=== PATIENT | female | born 1950 | race African-American/Black ===

== ENCOUNTER 2024-10-26 15:51 | Emergency (ER) | payer MEDICARE, SELFPAY ==
--- NOTE | 2024-10-26 16:00 | PD.EDCPR ---
ED CPR RME/HPI General Stated Complaint: CARDIAC ARREST Time Seen by Provider: 10/26/24 16:04 Arrival date/time: 10/26/24 15:51 RME / HPI RME / HPI narrative: DR. MARINELLI MAIN ED EVALUATION: 73 year old female with a history of hypertension and hysterectomy at 27 years old presents to the Emergency Department DENIS as a code blue, patient has been down since about 35 minutes prior to arrival so about 1515 hours. Upon ED arrival: patient had no signs of life, patient was pulseless, patient was immediately transferred to a [facility], and CPR was continued. No history or ROS obtainable by patient due to unresponsiveness. Patient was intubated prior to arrival by EMS at 1525 hours. EMS did not shock her but multiple rounds of EPI given. EMS denied any trauma. Patient was in asystole the entire code. Related Data Previous Rx's ?Medication ?Instructions ?Recorded amiodarone 200 mg tablet 200 mg PO QDAY #30 tabs 06/12/20 aspirin 81 mg tablet,delayed 81 mg PO QDAY #30 tabs 06/12/20 release diltiazem HCl 120 mg 120 mg PO QAM #30 caps 06/12/20 capsule,extended release 24 hr magnesium oxide 400 mg (241.3 mg 400 mg PO BID #14 tabs 06/12/20 magnesium) tablet potassium chloride 20 mEq 40 meq (2 x 20 mEq) PO BIDWM #14 06/12/20 tablet,extended release(part/cryst) tabs Allergies Allergy/AdvReac Type Severity Reaction Status Date / Time apple Allergy Severe HIVES, Verified 06/09/20 11:00 THROAT SWELLING Review of Systems Review of Systems ROS Unobtainable: unobtainable due to mental status and unobtainable due to medical condition Past Medical History Past Medical History CARDIAC: Positive Cardiac Disorders and Hypertension Surgical History SURGICAL: Positive Hysterectomy (pt was 27 years old) Social History SMOKING STATUS: Never smoker SUBSTANCE USE: does not use ALCOHOL: Never ED Exam Narrative Physical exam: GENERAL APPEARANCE: No sign of life. VITALS: No sign of life. HEENT: No sign of life. Pupils are fixed and dilated. NECK: No sign of life. CARDIOVASCULAR: No sign of life. No pulse present. LUNGS/CHEST: No sign of life. No spontaneous breathing. ABDOMEN: No sign of life. Belly distended and tight. EXTREMITIES: No sign of life. Pale, pulseless, no spontaneous movement. SKIN: No sign of life. MUSCULOSKELETAL: No sign of life. NEURO: No sign of life. Unable to examine. PSYCHIATRIC: No sign of life. Unable to examine. Course Course Course Narrative: 1550: Patient arrived as a code blue and was immediately seen by me. CPR continued. Downtime was 1515 hours and intubated prior to arrival by EMS at 1525 hours. 1558: Pulse check: No pulse, asystole. Time of Quality Measures none Cardiac Arrest / CPR MDM Narrative MDM Narrative:: I, Ann-Marie Paige, am scribing for and in the presence of Dr. Marinelli. the patient was brought into the emergency department by human resources compensation analyst for CODE BLUE. According to human resources compensation analyst the patient had been asystole and had been CPR by human resources compensation analyst for at least 30 minutes prior to arrival. The patient was intubated by human resources compensation analyst at 1535 in the field. The patient had been given epinephrine in the field. No shockable rhythm reported by human resources compensation analyst. Upon arrival to the emergency department the patient was showing no sign of life. No spontaneous movement. Pupils were fixed and dilated. No eyes movement. And the patient upon arrival at 1550, had a lot of what appeared to be stomach content in the ET tube. I listened to both lungs there was no lung sound. But there was stomach air bubble. We immediately removed the tube. And Ambu bag by hand by RT. The patient remained asystole. With no sign of life. Pupils are fixed and dilated. The patient was pronounced at 1558. Patient data External records reviewed:: [facility] previous records (Reviewed last admission discharge dated 06/12/20, patient admitted for the following: Acute gastroenteritis.) and EMS form Clinical information provided by:: EMS Social determinants that could affect healthcare access:: none Patient has the following chronic illnesses:: Hypertension and hysterectomy at 27 years old. How is presenting disease/condition affected by chronic disease/condition?: exacerbated by Evaluation data The following diagnostics were reviewed and interpreted by me:: other (specify) (none) Lab and/or radiology exams considered but not ordered:: none Interpretation Summary: See above under MDM narrative. Medications / Prescriptions Medications or Prescriptions considered but not ordered:: none Medication administrations:: see above if any Consultations Consultation(s) initiated? (list below): No Diagnosis Most likely diagnosis given after review of the tests above:: Cardiac arrest Admission Indicated Admission indicated?: not indicated Explain why admission is indicated or not indicated:: Patient Admission Request Was there a request for admission?: No Disposition Plan Disposition Plan: other (specify) (Patient ) Discharge Plan Plan Patient Disposition: Disposition Comment: Patient Problem List Clinical Impression: Cardiac arrest Patient/Caregiver Discharge Instructions Print Language: Croatian
--- NOTE | 2024-10-26 16:16 | PC.NURSE ---
PATIENT ARRIVED VIA EMS SECONDARY TO UNRESPONSIVE. PATIENT ARRIVED INTUBATED, IV IO AND MEDICATION GIVEN. CPR IN PROGRESS AND CONTINUED AT TIME OF ARRIVAL TO ED. TEAM IN ROOM 3 AND TOOK OVER CARE OF PATIENT. BILL RODRIGUEZ CALLED AND EFFORTS CONTINUED. PLEASE SEE CODE SHEET FOR RESCUE EFFORTS. BILL RODRIGUEZ CALLED AT [address] YANG.
--- NOTE | 2024-10-26 16:24 | PC.NURSE ---
[employer] CONTACTED AND SPOKE WITH CHRIS. REFERENCE #[id number]. STATES WILL CALL BACK WITH ADDITIONAL REQUEST FOR PRIMARY CONTACT INFORMATION.
--- NOTE | 2024-10-26 17:35 | PC.CC ---
ED Auto Glass Installer assisted medical staff in briefing family regarding pt passing. Admission Liaison agreed to communicate with hospital Brennan in order to allow family time and voodoo request. Family requested to have [employer].
--- NOTE | 2024-10-26 17:37 | PC.CC ---
ED Head And Neck Surgeon notified Gera Durbin arrived to meet with Pt and family. Unable to late family. Steam Pressure Chamber Operator contacted son via cell phone and was unable to make contact and voicemail was full unable to leave voicemail.
--- NOTE | 2024-10-26 18:10 | PC.NURSE ---
[facility] HERE TO TAKE PATIENT, FAMILY AWARE.
== END 2024-10-26 15:58 | disposition expired ==
LOC: SERX 18:26
PROVIDERS: Emergency Provider Emergency Medicine
DX: I46.9 Cardiac arrest, cause unspecified (principal); I10 Essential (primary) hypertension
CPT/HCPCS: 99285; J0171